=== PATIENT | female | born 1990 | race Caucasian/White ===

== ENCOUNTER → 2020-07-09 16:17 | Outpatient (CLI) | payer OTHER, SELFPAY ==
[2020-07-09 15:05] VITALS: BMI 29.7
[2020-07-09 18:22] LABS: T4 Free Direct 0.83 ng/dL (0.76-1.46); Thyroid Stim Hormone (TSH) 1.46 uIU/mL (0.358-3.74)
[2020-07-14 13:37] LABS: Testosterone Free 1.9 pg/mL (0.0-4.2)
[2020-07-18 16:23] LABS: 17-Hydroxyprogesterone 40 ng/dL (.)
== END ==
LOC: LAB 16:19
PROVIDERS: PCP Nurse Practitioner Family; Visit Provider Obstetrics & Gynecology
DX: N80.9 Endometriosis, unspecified (principal)
CPT/HCPCS: 36415; 82627; 83498; 84402; 84439; 84443; 82626

== ENCOUNTER → 2020-07-15 16:22 | Outpatient (CLI) | payer OTHER, SELFPAY ==
[2020-07-09 15:05] VITALS: BMI 29.7
--- NOTE | 2020-07-15 16:25 | US_ITS ---
STUDY: ULTRASOUND OF THE FEMALE PELVIS - COMPLETE REASON FOR EXAM: Female, 30 years old. hx: endometriosis LMP: TECHNIQUE: Transabdominal and transvaginal TECHNICAL QUALITY: Adequate. COMPARISON: None. FINDINGS: The uterus is anteverted and is in a midline position. The uterus measures 8.7 x 5.1 x 3.9 cm. Normal uterine cervix. The endometrium measures 8 mm in thickness, and is hyperechoic. There is no demonstrated endometrial mass. There is no demonstrated myometrial mass. I.U.D. - The patient does not have an I.U.D. The right ovary is visualized. The right ovary measures 3.1 x 2.1 x 2 cm. There is no right ovarian cyst or ovarian mass. There is no visualized right adnexal mass or complex lesion. There is normal arterial and normal venous vascularity. The left ovary is visualized. The left ovary measures 3.8 x 3.2 x 2.4 cm. There is a cyst measuring 1.6 x 1.7 x 1.4 cm and and complex cyst measuring 1.5 x 1.5 x 1.2 cm which may be consistent with endometrioma. There is no visualized left adnexal mass or complex lesion. There is normal arterial and normal venous vascularity. There is no fluid in the cul-de-sac. The pre void volume of the bladder was 589.23 ml. US/Transvaginal Non- IMPRESSION: Findings consistent with complex cyst in the left ovary measuring 1.5 x 1.5 x 1.2 cm which may be consistent with endometrioma. Electronically Signed: Marco Rao MD at 19:56 EDT , Service support ,
--- NOTE | 2020-07-15 16:25 | US_ITS ---
STUDY: ULTRASOUND OF THE FEMALE PELVIS - COMPLETE REASON FOR EXAM: Female, 30 years old. hx: endometriosis LMP: TECHNIQUE: Transabdominal and transvaginal TECHNICAL QUALITY: Adequate. COMPARISON: None. FINDINGS: The uterus is anteverted and is in a midline position. The uterus measures 8.7 x 5.1 x 3.9 cm. Normal uterine cervix. The endometrium measures 8 mm in thickness, and is hyperechoic. There is no demonstrated endometrial mass. There is no demonstrated myometrial mass. I.U.D. - The patient does not have an I.U.D. The right ovary is visualized. The right ovary measures 3.1 x 2.1 x 2 cm. There is no right ovarian cyst or ovarian mass. There is no visualized right adnexal mass or complex lesion. There is normal arterial and normal venous vascularity. The left ovary is visualized. The left ovary measures 3.8 x 3.2 x 2.4 cm. There is a cyst measuring 1.6 x 1.7 x 1.4 cm and and complex cyst measuring 1.5 x 1.5 x 1.2 cm which may be consistent with endometrioma. There is no visualized left adnexal mass or complex lesion. There is normal arterial and normal venous vascularity. There is no fluid in the cul-de-sac. The pre void volume of the bladder was 589.23 ml. US/Pelvic (Non ) IMPRESSION: Findings consistent with complex cyst in the left ovary measuring 1.5 x 1.5 x 1.2 cm which may be consistent with endometrioma. Electronically Signed: Marco Rao MD at 19:56 EDT , Service support ,
== END ==
LOC: US 16:23
PROVIDERS: PCP Nurse Practitioner Family; Referring Provider Obstetrics & Gynecology; Visit Provider Obstetrics & Gynecology
DX: N80.9 Endometriosis, unspecified (principal)
CPT/HCPCS: 76830; 76856

== ENCOUNTER 2020-08-25 19:34 | Observation (INO) | payer OTHER, SELFPAY ==
[2020-07-22 12:30] VITALS: BMI 29.7
[2020-08-06 16:03] VITALS: BMI 29.7
[2020-08-24 12:22] LABS: Basophil# 0.07 X10^3/uL; Basophil% 0.9 % (0-1); Eosinophil# 0.34 X10^3/uL; Eosinophils% 4.3 % (0-5); Hematocrit 41.4 % (37-47); Hemoglobin 13.8 g/dL (12.0-15.0); Lymphocyte % 25.5 % (19-41); Mean Corp Hgb Conc 33.3 g/dL (32-36); Mean Corpuscular Hgb 29.6 pg (27.0-32.0); Mean Corpuscular Volume 88.7 fL (81-99); Mean Platelet Vol. 10.1 fl (6.2-12.0); Monocyte# 0.45 X10^3/uL; Monocyte% 5.7 % (0-10); NRBC Flagged by Analyzer 0 % (0-5); Neutrophil # 4.95 X10^3/uL (2.7-7.7); Neutrophil % 63.2 % (47-70); Platelet Count 272 K/mm3 (150-450); RBC Distribution Width CV 12.4 % (11.6-14.6); RBC Distribution Width SD 40.4 fl (35.1-43.9); Red Blood Count 4.67 M/mm3 (4.2-5.4); White Blood Count 7.8 K/mm3 (4.4-11.0)
[2020-08-24 12:49] LABS: Internal QC Validated? YES +Cl - CLEAR BKGD; Pregnancy, Urine Negative Negative
[2020-08-25] VITALS (11 sets, daily range): BP systolic 109–131; BP diastolic 71–86; PULSE 76–102; RESP 14–18; TEMP 36.4–36.8; O2SAT 95–100; BMI 29.0; BMI 29.5
[2020-08-25] MEDS: Lactated Ringers 1,000 ML 40 ML IV ×2 (07:00→16:11)
[2020-08-25] MEDS: Scopolamine 1mg/72hr Patch 1 PATCH TD (07:00)
[2020-08-25] MEDS: Gabapentin 600 MG Tablet PO (07:00)
[2020-08-25] MEDS: Lactated Ringers 1,000 ML 70 ML IV ×2 (07:00→22:02)
[2020-08-25] MEDS: Acetaminophen 500 MG Tablet 1000 MG PO ×2 (07:00→18:18)
[2020-08-25] MEDS: Phenazopyridine 95 MG Tablet 190 MG PO (07:00)
[2020-08-25] MEDS: Celecoxib 200 MG Capsule 400 MG PO (07:00)
[2020-08-25] MEDS: dexAMETHasone 10 MG/ML Vial 8 MG IV (07:00)
--- NOTE | 2020-08-25 07:28 | HP.PCM_ITS ---
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: No Is patient in pain?: No Allergies No Known Allergies Allergy (Unverified 07/09/20 15:07) Medications flibanserin 100 mg tablet 100 mg PO QHS #30 tab 07/09/20 [Rx Confirmed 07/21/20] sertraline 50 mg tablet 50 mg PO DAILY 07/09/20 [History Confirmed 07/21/20] drospirenone 3 mg-ethinyl estradiol 0.03 mg tablet 1 tab PO DAILY #28 tab 07/13/20 [Rx Confirmed 07/21/20] Is last menstrual period known: No Post menopausal: No Patient : No : No [facility] Medical History Anxiety Endometriosis Surgical History History of laparoscopy Social History Smoking Status: Never smoker alcohol intake: never substance use type: does not use caffeine: Yes seatbelt use: always do you feel safe at home: Yes additional social history: Lamine 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 [facility] Details: BOB BARBOUR is a 30 year old who presents for preop visit for endometriosis [facility] BS and left oophorectomy. Female Reproductive History Menopausal Symptoms: No night sweats Pregancy History 2 Elective abortions Hx Para 2 Spontaneous abortions Hx # Term Pregnancies Ectopic pregnancies Hx # Pregnancies Multiple births # of living children Past Pregnancies Del. Date Name GA/Weeks Outcome Route Bth Weight Gen Labor Lgth Anesthesia Del Locatn Provider FOB Unknown 2008 Deepa 40 live - full term Female [facility] [place] [facility] Unknown 2011 Crystal live - full term Female [place] ROS Const Constitutional: Denies fatigue, night sweats, weight gain or weight loss ENT ENT: Reports system reviewed and no additional complaints, except as documented Cardio Card: Denies chest pain Resp Resp: Denies cough or dyspnea GI GI: Reports as per HPI; Denies constipation, nausea or vomiting : Denies nipple discharge, urinary frequency, urinary incontinence, urinary hesitancy, urinary urgency, vaginal discharge, vaginal dryness, vaginal odor or vaginal pruritus Musc Musc: Denies arthralgias, back pain or muscle weakness Skin Skin/Breast: Denies alopecia, change in hair, dry skin, breast mass, breast pain, breast skin changes or nipple discharge Neuro Neuro: Reports system reviewed and no additional complaints, except as documented Psych Psych: Reports system reviewed and no additional complaints, except as documented Endo Endo: Denies cold intolerance, excessive sweating, heat intolerance or polyd ipsia Iain/Lymph Hematologic/Lymphatic: Denies easy bleeding, Denies easy bruising and Denies lymphadenopathy Exam Const General: cooperative, healthy appearing, comfortable, no acute distress and well developed Orientation: alert [facility] Head: normal to inspection and normocephalic Ears: hearing grossly normal bilaterally and external ears normal Nose: external nose normal and nares normal Face and sinus: normal facial exam Neck Neck: normal visual inspection and no lymphadenopathy Thyroid: thyroid normal Chest Chest palpation & inspection: normal inspection of the chest Resp Effort & Inspection: normal respiratory effort Auscultation: clear to auscultation bilaterally Cardio Rate: regular rate GI Inspection: normal to inspection and non-distended Palpation: soft and no hepatosplenomegaly Musc Other: gross motor intact no deficits, full bilateral strength Skin General: no rashes or lesions noted Neuro General: patient alert, patient awake, moves all extremities and no focal motor deficits Motor: muscle tone normal throughout Extrem General: normal to inspection and no pedal edema Psych Appearance: grossly normal Mental Status: mental status grossly normal Affect: normal affect Speech and Movement: speech and movement normal Coding Level of Care Code No Charge Diagnoses Decreased libido R68.82 Endometriosis N80.9 Assessment and Plan Assessment and Plan (1) Decreased libido: Status: Acute Comment: addyi offered but too expensive. discussed medication adverse effects. recommended sexual therapy (2) Endometriosis: Status: Acute Comment: open to SDS. endometrioma seen on US which is recurrent and still having pelvic pain on OCP, failed medical management proceed with surgical plan BRIGHT TRAN left oophorectomy Plan - Dr. Ro Brannon MD: After discussing the patient's diagnosis and treatment plan options, patient wishes to proceed with surgical management. I have discussed with the patient the risks, benefits, and alternatives of the procedure which include but are not limited to risks of anesthesia, bleeding, infection, possible damage to bowel, bladder, or surrounding vasculature which could lead to additional surgery to evaluate any complications. Patient agrees to procedure and wishes to proceed. ACOG/uptodate references given for additional information regarding procedure. UPDATE- I have seen the patient and performed any clinically relevant updates to the history and physical exam. Ro Brannon MD
[2020-08-25 11:07] LABS: Internal QC Validated? YES +Cl - CLEAR BKGD; Pregnancy, Urine Negative Negative
[2020-08-25] MEDS: Enoxaparin 40 MG/0.4 ML Syringe SC (11:15)
[2020-08-25] MEDS: Vasopressin 20 UNITS/ML Vial (12:15)
--- NOTE | 2020-08-25 12:25 | HYST_PTH ---
PATIENT: BOB BARBOUR LOC: MS3 U#:[id number] AGE/SX: 30/F ROOM: MS318 RE08/25/[address]: Dr. Ro Brannon MD : 1990 BED: 1 DIS: 08/26/2020 SPEC #: [id number] RECD: 08/25/20 14:48 STATUS: ZACH MAYA #: [id number] [place]: 08/25/20 12:[address]: Ro Brannon DEPT: SURGICAL PATHOLOGY RECD BY: Sneha Walter ENTERED: 08/26/20 10:37 SP TYPE: HYSTERECT OTHR DR: MARY KAY Leary Tissues: Uterus, NOS Procedures: Surgery Specimen Level V HEADER OPERATION: ERAS, hysterectomy, LAVH, bilateral salpingectomy, left oophorectomy PRE-OP DIAGNOSIS: Endometriosis TISSUE SUBMITTED: Uterus, bilateral fallopian tubes, left ovary MICROSCOPIC DIAGNOSIS Uterus, bilateral fallopian tubes and left ovary, vaginal hysterectomy, bilateral salpingectomy and left oophorectomy: Cervix ? moderate chronic inflammation. Endometrium ? consistent with exogenous hormone effect. Myometrium - no pathologic diagnosis. Bilateral fallopian tubes - no pathologic diagnosis. Left ovary ? endometriosis. - Physiologic follicular cysts. SJ:rg 08/27/2020 MICROSCOPIC DESCRIPTION Slides are reviewed. GROSS DESCRIPTION Received in fixative is one container labeled with the patient's name and designated uterus, bilateral fallopian tubes and left ovary. The specimen consists of a hysterectomy specimen consisting of uterus with cervix, detached left fallopian tube and ovary and detached right fallopian tube. The uterus with cervix weighs 84 gm and measures 8.5 x 7 x 4.5 cm. The serosal surface is ragged. The ectocervical mucosa shows extensive erosion. The external os is slit-like in contour. The endocervical canal measures 2.5 cm in length and the endocervical mucosa is unremarkable. The triangular endometrial cavity measures 4 cm in length and up to 2.5 cm in width. The endometrium is mccullough, glistening without any mass lesion and measures 0.2 cm in thickness. Sections of the uterine wall do not reveal any mass lesion and measures 2.5 cm in thickness. The right fallopian tube measures 7 cm in length and 0.6 cm in diameter. The fimbrial end is identified. Sections reveal unremarkable cut surfaces. The left fallopian tube measures 4 cm in length and 0.8 cm in diameter. The fimbrial end is identified. Sections reveal unremarkable cut surfaces. The soft to cystic left ovary measures 3.5 x 3 x 2.5 cm. Sections reveal multiple hemorrhagic cysts. The largest cyst measures 1.5 cm in greatest dimension. No tubo-ovarian adhesions are identified. Debeader sections are submitted in 11 cassettes as follows: 1 - anterior cervix, 2 - posterior cervix, 3 & 4 - anterior uterine wall, 5 & 6 - posterior uterine wall, 7 - right fallopian tube, 8 - left fallopian tube, 9-11 - left ovary. / TJ:mauro 08/26/20 TC:5 CPT: 05671
[2020-08-25] MEDS: Cefazolin 2 GM in 0.9% Normal Saline 100 ML IV (12:39)
--- NOTE | 2020-08-25 12:42 | OP.PCM_ITS ---
Problems Associated Problem List Diagnoses (1) Endometriosis: (2) Decreased libido: Report of Operation Date of Procedure: 08/25/20 Pre-Operative Diagnosis: see problem list Post-Operative Diagnosis: same Surgery/Procedure Performed:: LAVHBS and left oophorectomy Description of Surgical Findings:: Complete obliteration of the cul-de-sac with left ovarian endometrioma, right and left ovary attached to the posterior uterus and left ovary. Endometriosis implants on the posterior uterine wall. 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 Patient was taken back to the operating room and placed in the dorsal lithotomy position. General anesthesia was induced and patient was prepped and draped in normal sterile fashion. Uterine manipulator was placed inside the uterus and Orourke catheter placed in the bladder. The umbilicus was grasped with towel clamps and an intraumbilical incision was made after injecting with quarter percent Marcaine and a Veress needle entered into the abdomen confirmed to be intra-abdominal with a low opening pressure. Abdomen was insufflated with CO2 gas and the Veress needle removed and the 5 mm trocar was placed under direct visualization without complication. Right and left lower quadrants were transilluminated and injected with quarter percent Marcaine and 5 mm ports placed under direct visualization. Pelvis was well visualized see operative findings for additional information. Complete obliteration of the cul-de-sac was seen with both ovaries and fallopian tubes attached to each other in the midline. This was dissected down sharply and with hydrodissection and using the LigaSure device. The left IP was transected in the mesosalpinx and broad ligament dissected down to the level of the uterine artery. Ligament was also dissected on the left-hand side. Right fallopian tube and ovary were sharply dissected off of the cul-de-sac and left ovary and the mesosalpinx was transected followed by the utero-ovarian ligament which was transected with the LigaSure device. Right ovary was completely freed up and mobile with no attachments except for the infundibulopelvic ligament. There is significant thickening of the tissues noted on the left ovarian fossa and in the cul-de-sac. No gross endometriosis lesions were seen at the time outside of the actual uterus itself that was going to be surgically removed. Anterior dissection occurred in the bladder flap was performed using the LigaSure device and the uterine arteries and veins were dissected out bilaterally and transected with LigaSure device. Due to the limited space in the cul-de-sac and the conc demond for injury upon posterior entry the decision to proceed with the Doderlein method wa made. Attention was paid to the vaginal portion and the anterior vaginal mucosa was injected with dilute vasopressin and anterior colpotomy made and the uterus delivered forward via doderlein method. Using greatly curved Mariam's the base of the uterus underneath the cervix was clamped and cut bilaterally and sutured excellent hemostasis was noted. Additional sutures were placed to reapproximate the vaginal mucosa with the posterior peritoneum. Vaginal cuff was closed with interrupted 0 Vicryl [id number] sutures. Attention was then paid to the abdominal portion of the procedure the pelvis and cul-de-sac were well visualized and no significant active bleeding noted but some raw areas were seen on the peritoneum and therefore Pamela was applied. Pressure was taken down and the areas visualized and noted of excellent hemostasis. All ports were removed under direct visualization without comp lication and the abdomen was desufflated of air. The instruments were removed from the abdomen and the vaginal sweep was negative. Port sites on the abdomen were closed with 4-0 Monocryl interrupted sutures and Steri's and windows were applied. She was awoken and taken recovery in stable condition. Grafts/Implants Used: none Complications none Admit VTE Documentation VTE Present on Admission: No VTE Mechan Device Prophylaxis: SCD's VTE Pharm Prophylaxis ordered?: Yes Procedures Urinary/Genital 52xxx-59xxx: 87184 LAVH+BS/O <250gr Uterus
[2020-08-25 12:46] LABS: Bedside Glucose 81 mg/dL (70-110)
--- NOTE | 2020-08-25 12:48 | PCM.DC ---
Discharge Instructions Diet Discharge Diet: No restrictions Activity May resume sexual activity in: 6 weeks Weight Bearing Status: Full weight bearing Dressing / Incision Call your doctor if your incision/area has: Continuous Slow Oozing, Sudden Increased Bleeding, Increased Pain/ Swelling, Increased Redness and Foul Smelling Discharge Call your doctor if you observe: Fever of 101 or Higher, Using more than 1 pad per hour, Shortness of breath, Chest pain and Uncontrolled pain Suture Line Care: Avoid Pulling/Pushing and Avoid Pinching/Bending Remove Dressing in: 1 week (if present) Cleanse incision/area with: Soap & Water and Keep Dressing Clean & Dry Follow Up Care Please Follow Up With: Ro Brannon MD When: Call to make an appointment with your doctor for a postop visit in 2 and 6 weeks. Test Results: Test results from this visit will be discussed in further detail at your follow-up appointment, if applicable. Discharge Plan Admission Primary Reason for Your Visit: hysterectomy Attending Provider: Ro Brannon Primary Care Provider: Renee Segundo NP Discharge Orders/Prescriptions Prescriptions: New naproxen 250 MG tablet 250 - 500 mg PO Q8H PRN PRN (Reason: MILD PAIN) Qty: 30 RF: 1 oxycodone-acetaminophen [Endocet] 5-325 mg tablet 1 tab PO Q4H PRN (Reason: pain) 7 Days Qty: 20 RF: 0 Continued sertraline [Zoloft] 50 mg tablet 50 mg PO DAILY RF: 0 Discontinued drospirenone-ethinyl estradiol [Ocella] 3-0.03 mg tablet 1 tab PO DAILY Qty: 28 RF: 12 Referrals / Follow Up: Renee Segundo NP, BOARDING KENNEL [employer] CATTERY OPERATOR-C [Primary Care Provider] - Ro Brannon MD [STAFF PHYSICIAN] - Disposition Disposition (needs filled in before D/C Order can be placed): Home, self care
[2020-08-25] MEDS: Bupivacaine 0.25% 30 ML Vial (14:38)
[2020-08-25] MEDS: Ondansetron 4 MG/2 ML Vial IV (15:14)
[2020-08-25] MEDS: Ketorolac 30 MG/ML Syringe IV ×2 (15:29→23:32)
[2020-08-25] MEDS: oxyCODONE 5 MG Tablet PO ×2 (16:46→22:35)
[2020-08-25 18:38] LABS: Hematocrit 41.6 % (37-47); Hemoglobin 13.7 g/dL (12.0-15.0); Mean Corp Hgb Conc 32.9 g/dL (32-36); Mean Corpuscular Hgb 29.3 pg (27.0-32.0); Mean Corpuscular Volume 88.9 fL (81-99); Mean Platelet Vol. 9.8 fl (6.2-12.0); Platelet Count 234 K/mm3 (150-450); RBC Distribution Width CV 12.6 % (11.6-14.6); RBC Distribution Width SD 41.1 fl (35.1-43.9); Red Blood Count 4.68 M/mm3 (4.2-5.4); White Blood Count 13.8 K/mm3 (4.4-11.0)
[2020-08-25] MEDS: Docusate Sodium 100 MG Capsule PO (22:35)
[2020-08-25] MEDS: 0.9% Saline Lock 10 ML Syringe IV (23:32)
[2020-08-26] MEDS: Acetaminophen 500 MG Tablet 1000 MG PO ×2 (00:38→06:22)
[2020-08-26 04:24] VITALS: BP 108/76; PULSE 105; RESP 16; TEMP 37.1; O2SAT 98
[2020-08-26 06:20] VITALS: BP 121/74; PULSE 98
[2020-08-26] MEDS: 0.9% Saline Lock 10 ML Syringe IV (06:22)
[2020-08-26] MEDS: Ketorolac 30 MG/ML Syringe IV (06:22)
--- NOTE | 2020-08-26 07:51 | PCM.PN.OB ---
Subjective Subjective patient recovering well, denies CP, SOB, N, or V. patient is ambulating, voiding ,tolerating adequate po, and pain is controlled with oral medications. Objective Data Objective Data Vital Signs: Vital Signs Temp Pulse Resp BP Pulse Ox 98.8 F 98 16 121/74 H 98 08/26/20 04:24 08/26/20 06:20 08/26/20 04:24 08/26/20 06:20 08/26/20 04:24 Oxygen Flow Rate (L/min) 6 Oxygen Delivery Method Room Air Weight: 177 lb 0.499 oz Body Mass Index (BMI) 29.5 Intake & Output: Intake and Output for Last 24 Hours 08/24/20 08/25/20 08/26/20 23:59 23:59 23:59 Intake Total 2717.17 / 2717.17 885.67 / 885.67 Output Total 1700 / 1700 800 / 800 Balance 1017.17 / 1017.17 85.67 / 85.67 Lab / Micro Data Result Diagrams: 08/25/20 18:25 Labs: Laboratory Results - last 24 hr 08/25/20 08/25/20 08/25/20 10:53 10:58 18:25 WBC 13.8 H RBC 4.68 Hgb 13.7 Hct 41.6 MCV 88.9 MCH 29.3 MCHC 32.9 RDW Std Deviation 41.1 RDW Coeff of Faustino 12.6 Plt Count 234 MPV 9.8 Urine Test Negative POC Glucose 81 Micro: Microbiology 08/24/20 11:15 Interface Orders SARS-CoV-2 Antigen (Rapid) - Final Physical Exam Const alert, oriented x3 and no apparent distress Resp normal respiratory effort GI soft to palpation and non-distended Inspection: incision other (dressing dry and intact) Narrative: Minimal drainage on peripad Bladder / Kidney Exam: catheter in place Assessment & Plan (1) S/P laparoscopic assisted vaginal hysterectomy (LAVH): (2) H/O bilateral salpingectomy: (3) History of left oophorectomy: COMMENT: stage IV endometriosis (4) Endometriosis: COMMENT: open to SDS. endometrioma seen on US which is recurrent and still having pelvic pain on OCP, failed medical management proceed with surgical plan LAVH BS left oophorectomy PLAN: patient is s/p lavh, BS, left oopherectomy POD 1 1. routine ERAS protocol postop care- increase ambulation, encourage oral intake and oral control of pain. lovenox and scds for dvt prophylaxis, patient stable for discharge to home.
[2020-08-26 08:30] VITALS: BP 117/73; PULSE 98; RESP 16; TEMP 37; O2SAT 96
[2020-08-26] MEDS: Docusate Sodium 100 MG Capsule PO (08:30)
[2020-08-26 10:14] VITALS: O2SAT 98
[2020-08-26] MEDS: oxyCODONE 5 MG Tablet PO (11:00)
== END 2020-08-26 11:40 | disposition home or self-care (01) ==
LOC: SDC 21:43 → MS3 21:43
PROVIDERS: Anesthesiology; Admitting Provider Obstetrics & Gynecology; PCP Nurse Practitioner Family; Referring Provider Obstetrics & Gynecology; Visit Provider Obstetrics & Gynecology
PROC: 0UT9FZZ Resection of Uterus, Via Natural or Artificial Opening With Percutaneous Endoscopic Assistance (ICD-10-PCS; CPT 58552; principal; 2020-08-25 12:00)
DX: N80.9 Endometriosis, unspecified (principal); R68.82 Decreased libido; F41.9 Anxiety disorder, unspecified; J45.909 Unspecified asthma, uncomplicated; Z79.899 Other long term (current) drug therapy
CPT/HCPCS: 58552; 36415; 81025; 82962; 83735; 85025; 85027; 86850; 86900; 86901; 87426; 88307; 96374; 96376; 99218; 99251; C9803; J7120; A4216; G0378; G0379; G0463; J2405

== ENCOUNTER → 2020-10-05 | Outpatient (CLI) | payer OTHER, SELFPAY ==
[2020-10-05 13:44] VITALS: BMI 29.5
== END | disposition home or self-care (01) ==
PROVIDERS: PCP Nurse Practitioner Family; Visit Provider Obstetrics & Gynecology
DX: N89.8 Other specified noninflammatory disorders of vagina (principal)
CPT/HCPCS: 87070; 87077; 87205

== ENCOUNTER → 2022-04-14 | Outpatient (CLI) | payer OTHER, SELFPAY ==
[2022-04-14 12:22] LABS: Absolute Lymphocyte Count 2.17 X10^3/uL (0.83-4.51); Absolute Neutrophil Count 4.4 X10^3/uL (2.0-7.7); Basophil# 0.06 X10^3/uL; Basophil% 0.8 % (0-1); Eosinophil# 0.39 X10^3/uL; Eosinophils% 5.2 % (0-5); Hematocrit 43.4 % (37-47); Hemoglobin 14.6 g/dL (12.0-15.0); Lymphocyte # 2.17 X10^3/ul (0.83-4.51); Lymphocyte % 28.9 % (19-41); Mean Corp Hgb Conc 33.6 g/dL (32-36); Mean Corpuscular Hgb 29.6 pg (27.0-32.0); Mean Corpuscular Volume 87.9 fL (81-99); Mean Platelet Vol. 9.9 fl (6.2-12.0); Monocyte% 6.6 % (0-10); NRBC Flagged by Analyzer 0 % (0-5); Neutrophil # 4.36 X10^3/uL (2.7-7.7); Platelet Count 290 K/mm3 (150-450); RBC Distribution Width CV 12.1 % (11.6-14.6); RBC Distribution Width SD 38.9 fl (35.1-43.9); Red Blood Count 4.94 M/mm3 (4.2-5.4); White Blood Count 7.5 K/mm3 (4.4-11.0)
[2022-04-14 13:06] LABS: ALB/GLOB Ratio 1.3 RATIO (0.9-2.4); AST(SGOT) 15 U/L (15-37); Alanine Aminotransfer ALT/SGPT 16 U/L (13-56); Albumin, Serum 4.5 g/dL (3.2-5.0); Alkaline Phosphatase 54 U/L (45-117); Anion Gap 7 (5-15); BUN 11 mg/dL (7-18); BUN/Creat Ratio 11.4 RATIO (10-20); Chloride 105 mmol/L (98-107); Creatinine, Serum 0.97 mg/dL (0.55-1.02); EST Glomerular Filtration Rate 70 mL/min (>60); Est Glom Filt Rate - Afr Amer 85 mL/min (>60); Globulin 3.4 g/dL (2.2-4.2); Glucose 85 mg/dL (74-106); Protein, Total 7.9 g/dL (6.4-8.2); Sodium Level 140 mmol/L (136-145); Thyroid Stim Hormone (TSH) 1.25 uIU/mL (0.358-3.74)
[2022-04-14 14:27] LABS: Vitamin D,25 Hydroxy 12.2 ng/mL
== END | disposition home or self-care (01) ==
PROVIDERS: PCP Internal Medicine; Referring Provider Internal Medicine; Visit Provider Internal Medicine
DX: F32.A Depression, unspecified (principal); F41.9 Anxiety disorder, unspecified
CPT/HCPCS: 36415; 80053; 82306; 84443; 85025

== ENCOUNTER → 2022-11-28 | Outpatient (CLI) | payer OTHER, SELFPAY ==
[2022-11-28 12:44] LABS: Vitamin D,25 Hydroxy 30.3 ng/mL
== END | disposition home or self-care (01) ==
LOC: BIMLAB 08:55
PROVIDERS: PCP Internal Medicine; Referring Provider Internal Medicine; Visit Provider Internal Medicine
DX: E55.9 Vitamin D deficiency, unspecified (principal)
CPT/HCPCS: 36415; 82306

== ENCOUNTER → 2023-10-31 | Outpatient (CLI) | payer OTHER, SELFPAY ==
[2023-10-31 12:33] LABS: Absolute Lymphocyte Count 1.78 X10^3/uL (0.83-4.51); Absolute Neutrophil Count 4.3 X10^3/uL (2.0-7.7); Basophil# 0.06 X10^3/uL; Basophil% 0.9 % (0-1); Eosinophil# 0.33 X10^3/uL; Eosinophils% 4.8 % (0-5); Hematocrit 41.7 % (37-47); Hemoglobin 13.9 g/dL (12.0-15.0); Lymphocyte # 1.78 X10^3/ul (0.83-4.51); Lymphocyte % 25.9 % (19-41); Mean Corp Hgb Conc 33.3 g/dL (32-36); Mean Corpuscular Hgb 29.8 pg (27.0-32.0); Mean Corpuscular Volume 89.5 fL (81-99); Mean Platelet Vol. 10.1 fl (6.2-12.0); Monocyte# 0.43 X10^3/uL; Monocyte% 6.3 % (0-10); NRBC Flagged by Analyzer 0 % (0-5); Neutrophil # 4.26 X10^3/uL (2.7-7.7); Neutrophil % 61.8 % (47-70); Platelet Count 255 K/mm3 (150-450); RBC Distribution Width CV 12.1 % (11.6-14.6); RBC Distribution Width SD 39.2 fl (35.1-43.9); Red Blood Count 4.66 M/mm3 (4.2-5.4); White Blood Count 6.9 K/mm3 (4.4-11.0)
[2023-10-31 12:36] LABS: Vitamin D,25 Hydroxy 34.2 ng/mL
[2023-10-31 12:45] LABS: ALB/GLOB Ratio 1.2 RATIO (0.9-2.4); AST(SGOT) 16 U/L (15-37); Alanine Aminotransfer ALT/SGPT 26 U/L (13-56); Alkaline Phosphatase 57 U/L (45-117); Anion Gap 6 (5-15); BUN 10 mg/dL (7-18); BUN/Creat Ratio 10.4 RATIO (10-20); Calcium,Total 9.5 mg/dL (8.5-10.1); Chloride 103 mmol/L (98-107); Cholesterol 222 mg/dL (200); Creatinine, Serum 0.96 mg/dL (0.55-1.02); EST Glomerular Filtration Rate 70 mL/min (>60); Est Glom Filt Rate - Afr Amer 85 mL/min (>60); Globulin 3.3 g/dL (2.2-4.2); Glucose 97 mg/dL (74-106); High Density Lipoprotein 58 mg/dL; Potassium 4.1 mmol/L (3.5-5.1); Protein, Total 7.3 g/dL (6.4-8.2); Sodium Level 137 mmol/L (136-145); Triglycerides 141 mg/dL; Very Low Density Lipoprotein 28 mg/dL (5-40)
== END | disposition home or self-care (01) ==
PROVIDERS: PCP Internal Medicine; Visit Provider Internal Medicine
DX: F32.A Depression, unspecified (principal); E55.9 Vitamin D deficiency, unspecified; E66.9 Obesity, unspecified; Z13.6 Encounter for screening for cardiovascular disorders; F41.9 Anxiety disorder, unspecified
CPT/HCPCS: 36415; 80053; 80061; 82306; 85025